=== PATIENT | male | born 1950 | race Caucasian/White ===

== ENCOUNTER 2017-07-23 07:39 | Day surgery (SDC) | payer OTHER, BC ==
[~2017-07-23] VITALS: Ht 172.7 cm; Wt 113.4 kg
[~2017-07-23 07:39] MED LIST: CRESTOR5 MG PO; DAILY VITAMIN1 EAC4 PO; FISH OIL 1,2001 EAC7 PO; GLUCOPHAGE500 MG PO; LO-DOSE ASPIRIN81 M2 PO; NIASPAN,SLO-N1000 MG PO; TENORMIN50 MG PO; VASOTEC10 MG PO
[2017-07-23 08:49] VITALS: BP 130/72
[2017-07-23 15:44] VITALS: BP 130/63
[2017-07-23 16:41] VITALS: BP 138/58
[2017-07-23 17:13] VITALS: BP 129/63
== END 2017-07-23 17:20 | disposition home or self-care (01) ==
LOC: SDC 07:39
PROVIDERS: Neurological Surgery
PROC: 0SB20ZZ Excision of Lumbar Vertebral Disc, Open Approach (ICD-10-PCS; principal; 2017-07-23)
PROC: 01NB0ZZ Release Lumbar Nerve, Open Approach (ICD-10-PCS; principal; 2017-07-23)
DX: M51.26 Other intervertebral disc displacement, lumbar region (principal); M48.062 Spinal stenosis, lumbar region with neurogenic claudication; I10 Essential (primary) hypertension; E11.9 Type 2 diabetes mellitus without complications; E78.00 Pure hypercholesterolemia, unspecified
CPT/HCPCS: 72020; 76000; 82948; J0131; J0330; J0690; J1100; J1170; J1885; J2250; J2710; J3010; J7643; S0020